=== PATIENT | male | born 1975 | race Caucasian/White ===

== ENCOUNTER 2018-04-12 07:50 | Day surgery (SDC) | payer OTHER ==
[2018-04-12] MEDS ORDERED: CEFAZOLIN SODIUM 1 GM PDS ONE (08:39)
[2018-04-12] MEDS ORDERED: MIDAZOLAM 2 MG/2 ML SOL ONE (08:39)
[2018-04-12] MEDS ORDERED: DEXAMETHASONE 20 MG/5 ML (4 MG/ML SOL) ONE (08:39)
[2018-04-12] MEDS ORDERED: ONDANSETRON HCL 4 MG/2 ML SOL ONE (08:39)
[2018-04-12] MEDS ORDERED: PROPOFOL 500 MG/50 ML EMU IV ONE (08:39)
[2018-04-12] MEDS ORDERED: LIDOCAINE HCL 1% MPF 30 SOL ONE (08:39)
[2018-04-12] MEDS ORDERED: FENTANYL 100MCG/2ML SOL ONE (08:39)
[2018-04-12] MEDS ORDERED: HYDROMORPHONE 1 MG/ML SYRINGE ONE (09:42)
[2018-04-12 10:53] VITALS: RESP 16
[2018-04-12 11:07] VITALS: O2SAT 98
[2018-04-12] MEDS ORDERED: APAP/HYDROCODONE 325/5 TAB ONE (11:50)
[2018-04-12 11:55] VITALS: BP 124/74; PULSE 58; TEMP 97.7
== END 2018-04-12 12:28 | disposition home or self-care (01) | DRG 950 ==
LOC: SURG 07:50
PROVIDERS: ATTEND Orthopaedic Surgery
DX: S83.241D Other tear of medial meniscus, current injury, right knee, subsequent encounter (principal); M94.262 Chondromalacia, left knee
CPT/HCPCS: J0690; J1100; J2250; J2405; J3010; A6402; A9270-GY; J1170; J2001; J2704

== ENCOUNTER 2018-04-19 11:09 | Outpatient (CLI) | payer OTHER | END 2018-04-19 11:10 | disposition home or self-care (01) | DRG 556 | LOC: CONVCARE 11:09 | PROVIDERS: ATTEND Orthopaedic Surgery | DX: M25.561 Pain in right knee (principal); Z98.890 Other specified postprocedural states | CPT/HCPCS: 73502; 73560 ==